=== PATIENT | male | born 1965 | race African-American/Black ===

== ENCOUNTER 2016-11-30 14:58 | Inpatient (IN) | payer OTHER ==
[2016-11-30 15:30] VITALS: BMI 22.8
[2016-11-30] MEDS ORDERED: MENTHOL/PHENOL 1 EACH UD MM PRN (17:33)
[2016-11-30] MEDS ORDERED: MAGNESIUM HYDROX 2400MG/30ML ORAL SUSPENSION 30 ML CUP PO PRN (17:33)
[2016-11-30] MEDS ORDERED: diphenhydrAMINE HCL 50 MG CAPSULE PO PRN (17:33)
[2016-11-30] MEDS ORDERED: guaiFENesin/D-METHORPHAN HB 10 ML UNIT-DOSE CUPS PO PRN (17:33)
[2016-11-30] MEDS ORDERED: NICOTINE 14 MG/24 HOURS TOPICAL PATCH TD PRN (17:33)
[2016-11-30] MEDS ORDERED: MAGNESIUM CITRATE 300 ML BOTTLE PO PRN (17:33)
[2016-11-30] MEDS ORDERED: ACETAMINOPHEN 325 MG TABLET (FP) PO PRN (17:33)
[2016-11-30] MEDS ORDERED: MAG HYDROX/AL HYDROX/SIMETH 30 ML UNIT-DOSE CUP PO PRN (17:33)
[2016-11-30] MEDS ORDERED: P-EPHED 60MG/TRIPROLIDI 2.5MG TABLET PO PRN (17:33)
[2016-11-30] MEDS ORDERED: hydrOXYzine PAMOATE 50 MG CAPSULE (FP) PO PRN (17:33)
[2016-11-30] MEDS ORDERED: IBUPROFEN 400 MG TABLET (FP) PO PRN (17:33)
[2016-11-30] MEDS ORDERED: NICOTINE POLACRILEX 2 MG GUM BC PRN (17:33)
[2016-11-30] MEDS ORDERED: LOPERAMIDE HCL 2 MG CAPSULE PO PRN (17:33)
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
[2016-11-30] MEDS ORDERED: COLLOIDAL OATMEAL 1 BAR EACH TP PRN (17:35)
[2016-11-30] MEDS ORDERED: TUBERCULIN PPD 5 TU/0.1ML VIAL ID ONE ×2 (18:45→18:47)
[2016-11-30] MEDS: THIAMINE HCL 100 MG TABLET (FP) PO SCH (22:26)
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
--- NOTE | 2016-12-01 09:06 | EKG ---
Test Reason : Blood Pressure : / mmHG Vent. Rate : 069 BPM Atrial Rate : 069 BPM P-R Int : 162 ms QRS Dur : 084 ms QT Int : 422 ms P-R-T Axes : 060 047 013 degrees QTc Int : 452 ms NORMAL SINUS RHYTHM SEPTAL INFARCT , AGE UNDETERMINED ABNORMAL ECG NO PREVIOUS ECGS AVAILABLE Confirmed by AUSTIN ANH MD ([id number]) on 12/01/2016 9:05:36 AM Referred By: Confirmed By:AUSTIN AHN MD
[2016-12-01 09:46] LABS: MCH 32.5 pg (25.7-33.7); MEAN CELL VOLUME 98.4 fl (80-96); MEAN PLT VOLUME 7.8 fl (7.5-11.1); PLATELET COUNT 321 K/MM3 (134-434); RDW 13.7 % (11.9-15.9); WHITE BLOOD COUNT 5.9 K/mm3 (4.0-10.0)
[2016-12-01] MEDS: PRENATAL VITAMINS W/ FOLIC ACID TABLET (FP) PO SCH (09:46)
[2016-12-01 10:39] LABS: HIV 1 & 2 AB NEGATIVE; HIV 1 AGp24 NEGATIVE
[2016-12-01 10:51] LABS: ANION GAP 7 (8-16); CO2 34 mmol/L (21-32); CREATININE 1.1 mg/dL (0.7-1.3); GLUCOSE,RANDOM 97 mg/dL (74-106); SGOT/AST 19 U/L (15-37); SGPT/ALT 33 U/L (12-78)
[2016-12-01 10:52] LABS: ALK PHOS 76 U/L (45-117); TOT PROT 7.5 g/dl (6.4-8.2)
[2016-12-01 17:41] LABS: URINE APPEARANCE CLEAR; URINE BILIRUBIN NEGATIVE (NEGATIVE); URINE BLOOD NEGATIVE (NEGATIVE); URINE COLOR COLORLESS; URINE GLUCOSE (UA) NEGATIVE (NEGATIVE); URINE KETONE NEGATIVE (NEGATIVE); URINE LEUK ESTERASE NEGATIVE (NEGATIVE); URINE NITRITE NEGATIVE (NEGATIVE); URINE PROTEIN NEGATIVE (NEGATIVE); URINE UROBILINOGEN NEGATIVE mg/dL (0.2-1.0)
[2016-12-01] MEDS: THIAMINE HCL 100 MG TABLET (FP) PO SCH (21:54)
[2016-12-02 07:05] VITALS: BP 131/77; PULSE 83; TEMP 98.3
[2016-12-02] MEDS: PRENATAL VITAMINS W/ FOLIC ACID TABLET (FP) PO SCH (10:18)
--- NOTE | 2016-12-02 15:30 | PN ---
S Progress Note Note: Psychiatry Attending's note : Informed by nurse Liceralde of patient's request for immediate discharge. Mr Gonzalez was instructed to wait for psychiatrist.He refused and left the unit. See staff's notes for details.
== END 2016-12-02 12:12 | disposition left against medical advice (07) | DRG 770 ==
LOC: YASAS 14:58 → Y3W 17:44
PROVIDERS: ADMIT Psychiatry & Neurology Psychiatry; ATTEND Psychiatry & Neurology Psychiatry
PROC: HZ42ZZZ Group Counseling for Substance Abuse Treatment, Cognitive-Behavioral (ICD-10-PCS; principal; 2016-11-30)
DX: F11.20 Opioid dependence, uncomplicated (principal); F17.213 Nicotine dependence, cigarettes, with withdrawal; F19.282 Other psychoactive substance dependence with psychoactive substance-induced sleep disorder; Z88.0 Allergy status to penicillin; Z87.898 Personal history of other specified conditions; Z59.0 Homelessness
CPT/HCPCS: 36415; 80053; 81003; 85027; 86593; 86803; 87389; 93005; 93010

== ENCOUNTER 2017-05-04 17:42 | Inpatient (IN) | payer OTHER ==
[2017-05-04 18:33] VITALS: BMI 25.1
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
[2017-05-04] MEDS ORDERED: ACETAMINOPHEN 325 MG TABLET (FP) PO PRN (21:37)
[2017-05-04] MEDS ORDERED: guaiFENesin/D-METHORPHAN HB 10 ML UNIT-DOSE CUPS PO PRN (21:37)
[2017-05-04] MEDS ORDERED: chlordiazePOXIDE HCL 25 MG CAPSULE PO PRN (21:37)
[2017-05-04] MEDS ORDERED: METHADONE HCL 10 MG TABLET (FOR DETOX USE ONLY) PO ONE ×2 (21:37→23:00)
[2017-05-04] MEDS ORDERED: MENTHOL/PHENOL 1 EACH UD MM PRN (21:37)
[2017-05-04] MEDS ORDERED: MAG HYDROX/AL HYDROX/SIMETH 30 ML UNIT-DOSE CUP PO PRN (21:37)
[2017-05-04] MEDS ORDERED: MAGNESIUM HYDROX 2400MG/30ML ORAL SUSPENSION 30 ML CUP PO PRN (21:37)
[2017-05-04] MEDS ORDERED: MAGNESIUM CITRATE 300 ML BOTTLE PO PRN (21:37)
[2017-05-04] MEDS ORDERED: LOPERAMIDE HCL 2 MG CAPSULE PO PRN (21:37)
[2017-05-04] MEDS ORDERED: IBUPROFEN 400 MG TABLET (FP) PO PRN (21:37)
[2017-05-04] MEDS ORDERED: P-EPHED 60MG/TRIPROLIDI 2.5MG TABLET PO PRN (21:37)
[2017-05-04] MEDS ORDERED: NICOTINE POLACRILEX 2 MG GUM BC PRN (21:37)
[2017-05-04] MEDS ORDERED: METHADONE HCL 10 MG TABLET (FOR DETOX USE ONLY) ONE (23:43)
[2017-05-05] MEDS: THIAMINE HCL 100 MG TABLET (FP) PO SCH ×2 (00:08→22:05)
[2017-05-05] MEDS: chlordiazePOXIDE HCL 25 MG CAPSULE PO SCH ×5 (00:08→22:05)
[2017-05-05 00:52] LABS: URINE APPEARANCE CLEAR; URINE BILIRUBIN NEGATIVE (NEGATIVE); URINE BLOOD NEGATIVE (NEGATIVE); URINE COLOR YELLOW; URINE GLUCOSE (UA) NEGATIVE (NEGATIVE); URINE KETONE NEGATIVE (NEGATIVE); URINE LEUK ESTERASE NEGATIVE (NEGATIVE); URINE NITRITE NEGATIVE (NEGATIVE); URINE PROTEIN NEGATIVE (NEGATIVE)
[2017-05-05] MEDS ORDERED: METHADONE HCL 10 MG TABLET (FOR DETOX USE ONLY) PO SCH (10:00)
[2017-05-05] MEDS: PRENATAL VITAMINS W/ FOLIC ACID TABLET (FP) PO SCH (10:13)
[2017-05-05] MEDS: NICOTINE 14 MG/24 HOURS TOPICAL PATCH TD SCH (10:14)
[2017-05-05 10:27] LABS: HEMATOCRIT 41.6 % (35.4-49); HEMOGLOBIN 13.4 GM/dL (11.7-16.9); MCH 31.3 pg (25.7-33.7); MCHC 32.2 g/dl (32.0-35.9); MEAN CELL VOLUME 97.3 fl (80-96); MEAN PLT VOLUME 8.1 fl (7.5-11.1); PLATELET COUNT 269 K/MM3 (134-434); RBC 4.27 M/mm3 (4.00-5.60); RDW 13.2 % (11.9-15.9); WHITE BLOOD COUNT 4.9 K/mm3 (4.0-10.0)
[2017-05-05 10:38] LABS: CHLORIDE 104 mmol/L (98-107); SODIUM 143 mmol/L (136-145)
[2017-05-05 10:53] LABS: ALBUMIN 4.1 g/dl (3.4-5.0); ALK PHOS 81 U/L (45-117); ANION GAP 7 (8-16); BLOOD UREA NITROGEN 16 mg/dL (7-18); CALCIUM 9.2 mg/dL (8.5-10.1); CO2 32 mmol/L (21-32); CREATININE 1.2 mg/dL (0.7-1.3); GLUCOSE,RANDOM 93 mg/dL (74-106); SGOT/AST 28 U/L (15-37); SGPT/ALT 45 U/L (12-78); TOT PROT 7.7 g/dl (6.4-8.2)
--- NOTE | 2017-05-05 11:53 | PN ---
[facility] CIWA - CIWA Score Nausea/Vomitin-Int. Nausea w/Dry Heave Muscle Tremors: 4-Moderate,w/Arms Extend Anxiety: 3 Agitation: 3 Paroxysmal Sweats: 3 Orientation: 0-Oriented Tacttile Disturbances: 1-Very Mild Itch/Numbness Auditory Disturbances: 0-None Visual Disturbances: 0-None Headache: 0-None Present CIWA-Ar Total Score: 18 [facility] COWS - Scale Resting Pulse: 0= [place] 80 or Below Sweatin= Chills/Flushing Restless Observation: 3= Extraneous Movement Pupil Size: 0= Normal to Room Light Bone or Joint Aches: 2= Severe Diffuse Aches Runny Nose/ Eye Tearin= Runny Nose/Eyes GI Upset > 30mins: 2= Nausea/Diarrhea Tremor Observation of Outstretched Hands: 2= Slight Tremor Visible Yawning Observation: 1= 1-2x During Session Anxiety or Irritability: 2=Irritable/Anxious Goose Flesh Skin: 0=Smooth Skin COWS Score: 15 [facility] Progress Note (SOAP) Subjective: Nausea, sweating, interrupted sleep Objective: 05/05/17 11:49 Last Vital Signs Temp Pulse Resp BP Pulse Ox 97 F L 66 18 103/67 05/05/17 09:00 05/05/17 09:00 05/05/17 09:00 05/05/17 09:00 Laboratory Tests 05/04/17 05/05/17 05/05/17 22:59 08:00 08:00 WBC 4.9 RBC 4.27 Hgb 13.4 Hct 41.6 MCV 97.3 H MCH 31.3 MCHC 32.2 RDW 13.2 Plt Count 269 MPV 8.1 Sodium 143 Potassium 4.0 Chloride 104 Carbon Dioxide 32 Anion Gap 7 L BUN 16 Creatinine 1.2 Creat Clearance w eGFR > 60 Random Glucose 93 Calcium 9.2 Total Bilirubin 1.0 AST 28 D ALT 45 D Alkaline Phosphatase 81 Total Protein 7.7 Albumin 4.1 Urine Color Yellow Urine Appearance Clear Urine pH 5.0 Ur Specific [place] 1.027 Urine Protein Negative Urine Glucose (UA) Negative Urine Ketones Negative Urine Blood Negative Urine Nitrite Negative Urine Bilirubin Negative Urine Urobilinogen 2.0 Ur Leukocyte Esterase Negative Labs noted Assessment: 05/05/17 11:51 Withdrawal symptoms Plan: Continue detox Encouraged PO hydration (water)
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
--- NOTE | 2017-05-05 15:58 | EKG ---
Test Reason : Blood Pressure : / mmHG Vent. Rate : 070 BPM Atrial Rate : 070 BPM P-R Int : 166 ms QRS Dur : 084 ms QT Int : 420 ms P-R-T Axes : 062 013 009 degrees QTc Int : 453 ms NORMAL SINUS RHYTHM NORMAL ECG WHEN COMPARED WITH ECG OF 30-NOV-2016 21:30, CRITERIA FOR SEPTAL INFARCT ARE NO LONGER PRESENT NONSPECIFIC T WAVE ABNORMALITY NO LONGER EVIDENT IN ANTEROLATERAL LEADS Confirmed by JENNIFER VALDES, VIKTORIYA ([id number]) on 05/05/2017 3:58:25 PM Referred By: Confirmed By:VIKTORIYA RODRIGUEZ MD
[2017-05-06] MEDS: chlordiazePOXIDE HCL 25 MG CAPSULE PO SCH ×3 (05:33→20:35)
[2017-05-06] MEDS: METHADONE HCL 5 MG TABLET (FOR DETOX USE ONLY) PO SCH (10:39)
[2017-05-06] MEDS: PRENATAL VITAMINS W/ FOLIC ACID TABLET (FP) PO SCH (10:39)
[2017-05-06] MEDS: NICOTINE 14 MG/24 HOURS TOPICAL PATCH TD SCH (10:41)
--- NOTE | 2017-05-06 15:49 | PN ---
[facility] CIWA - CIWA Score Nausea/Vomitin Muscle Tremors: 3 Anxiety: 3 Agitation: 3 Paroxysmal Sweats: 2 Orientation: 0-Oriented Tacttile Disturbances: 0-None Auditory Disturbances: 0-None Visual Disturbances: 0-None Headache: 0-None Present CIWA-Ar Total Score: 14 S COWS - Scale Resting Pulse: 0= [place] 80 or Below Sweatin=Flushed/Facial Moisture Restless Observation: 1= Difficult to Sit Still Pupil Size: 0= Normal to Room Light Bone or Joint Aches: 1= Mild Discomfort Runny Nose/ Eye Tearin= Nasal Congestion GI Upset > 30mins: 2= Nausea/Diarrhea Tremor Observation of Outstretched Hands: 2= Slight Tremor Visible Yawning Observation: 1= 1-2x During Session Anxiety or Irritability: 2=Irritable/Anxious Goose Flesh Skin: 0=Smooth Skin COWS Score: 12 [facility] Progress Note (SOAP) Subjective: swaets shakes sleep disturbance Objective: 05/06/17 15:48 Not in acute distress Vital Signs Temperature 97.3 F L 05/06/17 13:32 Pulse Rate 71 05/06/17 13:32 Respiratory Rate 18 05/06/17 13:32 Blood Pressure 100/64 05/06/17 13:32 O2 Sat by Pulse Oximetry (%) Assessment: 05/06/17 15:49 withdrawal sx Plan: continue detox
[2017-05-06] MEDS: THIAMINE HCL 100 MG TABLET (FP) PO SCH (21:59)
[2017-05-06] MEDS: chlordiazePOXIDE 5 MG CAPSULE PO SCH (22:00)
[2017-05-07] MEDS: chlordiazePOXIDE 5 MG CAPSULE PO SCH ×2 (06:35→11:00)
[2017-05-07] MEDS: METHADONE HCL 5 MG TABLET (FOR DETOX USE ONLY) PO SCH (10:59)
[2017-05-07] MEDS: NICOTINE 14 MG/24 HOURS TOPICAL PATCH TD SCH (10:59)
[2017-05-07] MEDS: PRENATAL VITAMINS W/ FOLIC ACID TABLET (FP) PO SCH (10:59)
--- NOTE | 2017-05-07 11:00 | PN ---
S Progress Note (SOAP) Subjective: PT STATES HE FEELS BETTER. REFUSED METHADONE 10 MG TODAY PER PT'S NURSE. PT'S COUNSELOR, RASHAAD SPOKE WITH PATIENT AND TO ADDRESS AFTERCARE. Objective: 05/07/17 11:00 Vital Signs Temperature 96.9 F L 05/07/17 09:30 Pulse Rate 61 05/07/17 09:30 Respiratory Rate 18 05/07/17 09:30 Blood Pressure 109/71 05/07/17 09:30 O2 Sat by Pulse Oximetry (%) Laboratory Last Values WBC 4.9 K/mm3 (4.0-10.0) 05/05/17 08:00 RBC 4.27 M/mm3 (4.00-5.60) 05/05/17 08:00 Hgb 13.4 GM/dL (11.7-16.9) 05/05/17 08:00 Hct 41.6 % (35.4-49) 05/05/17 08:00 MCV 97.3 fl (80-96) H 05/05/17 08:00 MCH 31.3 pg (25.7-33.7) 05/05/17 08:00 MCHC 32.2 g/dl (32.0-35.9) 05/05/17 08:00 RDW 13.2 % (11.9-15.9) 05/05/17 08:00 Plt Count 269 K/MM3 (134-434) 05/05/17 08:00 MPV 8.1 fl (7.5-11.1) 05/05/17 08:00 Sodium 143 mmol/L (136-145) 05/05/17 08:00 Potassium 4.0 mmol/L (3.5-5.1) 05/05/17 08:00 Chloride 104 mmol/L (98-107) 05/05/17 08:00 Carbon Dioxide 32 mmol/L (21-32) 05/05/17 08:00 Anion Gap 7 (8-16) L 05/05/17 08:00 BUN 16 mg/dL (7-18) 05/05/17 08:00 Creatinine 1.2 mg/dL (0.7-1.3) 05/05/17 08:00 Creat Clearance w eGFR > 60 (>60) 05/05/17 08:00 Random Glucose 93 mg/dL (74-106) 05/05/17 08:00 Calcium 9.2 mg/dL (8.5-10.1) 05/05/17 08:00 Total Bilirubin 1.0 mg/dL (0.2-1.0) 05/05/17 08:00 AST 28 U/L (15-37) D 05/05/17 08:00 ALT 45 U/L (12-78) D 05/05/17 08:00 Alkaline Phosphatase 81 U/L (45-117) 05/05/17 08:00 Total Protein 7.7 g/dl (6.4-8.2) 05/05/17 08:00 Albumin 4.1 g/dl (3.4-5.0) 05/05/17 08:00 Urine Color Yellow 05/04/17 22:59 Urine Appearance Clear 05/04/17 22:59 Urine pH 5.0 (5.0-8.0) 05/04/17 22:59 Ur Specific [place] 1.027 (1.001-1.035) 05/04/17 22:59 Urine Protein Negative (NEGATIVE) 05/04/17 22:59 Urine Glucose (UA) Negative (NEGATIVE) 05/04/17 22:59 Urine Ketones Negative (NEGATIVE) 05/04/17 22:59 Urine Blood Negative (NEGATIVE) 05/04/17 22:59 Urine Nitrite Negative (NEGATIVE) 05/04/17 22:59 Urine Bilirubin Negative (NEGATIVE) 05/04/17 22:59 Urine Urobilinogen 2.0 mg/dL (0.2-1.0) 05/04/17 22:59 Ur Leukocyte Esterase Negative (NEGATIVE) 05/04/17 22:59 RPR Titer Nonreactive (NONREACTIVE) 05/05/17 08:00 Hepatitis C Antibody 0.2 s/co ratio (0.0-0.9) 05/05/17 08:00 Assessment: 05/07/17 11:01 WITHDRAWAL SX Plan: CONTINUE DETOX
[2017-05-07 14:14] VITALS: BP 102/65; PULSE 77; TEMP 97.3
--- NOTE | 2017-05-07 14:37 | DS ---
[facility] Detox Discharge Summary Admission Date: 05/04/17 Discharge Date: 05/07/17 - History Present History: Alcohol Dependence, Cocaine Dependence, Opioid Dependence Additional Comments: PT SIGNED OUT AMA FOR PERSONAL REASONS. STATES HE IS READY TO GO. Pertinent Past History: SEE DX BELOW - Physical Exam Results Vital Signs: Vital Signs Temperature 97.3 F L 05/07/17 14:13 Pulse Rate 77 05/07/17 14:13 Respiratory Rate 18 05/07/17 14:13 Blood Pressure 102/65 05/07/17 14:13 O2 Sat by Pulse Oximetry (%) Pertinent Admission Physical Exam Findings: WITHDRAWAL SX Laboratory Last Values WBC 4.9 K/mm3 (4.0-10.0) 05/05/17 08:00 RBC 4.27 M/mm3 (4.00-5.60) 05/05/17 08:00 Hgb 13.4 GM/dL (11.7-16.9) 05/05/17 08:00 Hct 41.6 % (35.4-49) 05/05/17 08:00 MCV 97.3 fl (80-96) H 05/05/17 08:00 MCH 31.3 pg (25.7-33.7) 05/05/17 08:00 MCHC 32.2 g/dl (32.0-35.9) 05/05/17 08:00 RDW 13.2 % (11.9-15.9) 05/05/17 08:00 Plt Count 269 K/MM3 (134-434) 05/05/17 08:00 MPV 8.1 fl (7.5-11.1) 05/05/17 08:00 Sodium 143 mmol/L (136-145) 05/05/17 08:00 Potassium 4.0 mmol/L (3.5-5.1) 05/05/17 08:00 Chloride 104 mmol/L (98-107) 05/05/17 08:00 Carbon Dioxide 32 mmol/L (21-32) 05/05/17 08:00 Anion Gap 7 (8-16) L 05/05/17 08:00 BUN 16 mg/dL (7-18) 05/05/17 08:00 Creatinine 1.2 mg/dL (0.7-1.3) 05/05/17 08:00 Creat Clearance w eGFR > 60 (>60) 05/05/17 08:00 Random Glucose 93 mg/dL (74-106) 05/05/17 08:00 Calcium 9.2 mg/dL (8.5-10.1) 05/05/17 08:00 Total Bilirubin 1.0 mg/dL (0.2-1.0) 05/05/17 08:00 AST 28 U/L (15-37) D 05/05/17 08:00 ALT 45 U/L (12-78) D 05/05/17 08:00 Alkaline Phosphatase 81 U/L (45-117) 05/05/17 08:00 Total Protein 7.7 g/dl (6.4-8.2) 05/05/17 08:00 Albumin 4.1 g/dl (3.4-5.0) 05/05/17 08:00 Urine Color Yellow 05/04/17 22:59 Urine Appearance Clear 05/04/17 22:59 Urine pH 5.0 (5.0-8.0) 05/04/17 22:59 Ur Specific [place] 1.027 (1.001-1.035) 05/04/17 22:59 Urine Protein Negative (NEGATIVE) 05/04/17 22:59 Urine Glucose (UA) Negative (NEGATIVE) 05/04/17 22:59 Urine Ketones Negative (NEGATIVE) 05/04/17 22:59 Urine Blood Negative (NEGATIVE) 05/04/17 22:59 Urine Nitrite Negative (NEGATIVE) 05/04/17 22:59 Urine Bilirubin Negative (NEGATIVE) 05/04/17 22:59 Urine Urobilinogen 2.0 mg/dL (0.2-1.0) 05/04/17 22:59 Ur Leukocyte Esterase Negative (NEGATIVE) 05/04/17 22:59 RPR Titer Nonreactive (NONREACTIVE) 05/05/17 08:00 Hepatitis C Antibody 0.2 s/co ratio (0.0-0.9) 05/05/17 08:00 - Treatment Hospital Course: Discharged Condition Good - Medication Discharge Medications: Ambulatory Orders NK [No Known Home Medication] 11/25/16 - Diagnosis (1) Alcohol dependence with uncomplicated withdrawal Status: Acute (2) Cocaine dependence, uncomplicated Status: Acute (3) Nicotine dependence Status: Acute Qualifiers: Nicotine product type: cigarettes Substance use status: in withdrawal Qualified Code(s): F17.213 - Nicotine dependence, cigarettes, with withdrawal (4) Opioid dependence with withdrawal Status: Acute (5) Sedative, hypnotic or anxiolytic dependence with withdrawal, uncomplicated Status: Acute (6) Weight loss Status: Acute - AMA Did Patient Leave Against Medical Advice: Yes (AMA)
[2017-05-07] MEDS ORDERED: chlordiazePOXIDE HCL 10 MG CAPSULE PO SCH (23:00)
[2017-05-08] MEDS ORDERED: METHADONE HCL 10 MG TABLET (FOR DETOX USE ONLY) PO SCH (10:00)
[2017-05-09] MEDS ORDERED: METHADONE HCL 5 MG TABLET (FOR DETOX USE ONLY) PO SCH (06:00)
== END 2017-05-07 14:28 | disposition left against medical advice (07) | DRG 770 ==
LOC: YASAS 17:42 → Y3N 20:31
PROVIDERS: ADMIT Internal Medicine; ATTEND Internal Medicine
PROC: HZ2ZZZZ Detoxification Services for Substance Abuse Treatment (ICD-10-PCS; principal; 2017-05-04)
DX: F11.23 Opioid dependence with withdrawal (principal); F10.230 Alcohol dependence with withdrawal, uncomplicated; F13.230 Sedative, hypnotic or anxiolytic dependence with withdrawal, uncomplicated; F14.20 Cocaine dependence, uncomplicated; F17.213 Nicotine dependence, cigarettes, with withdrawal; Z88.0 Allergy status to penicillin; Z87.898 Personal history of other specified conditions; Z59.0 Homelessness
CPT/HCPCS: 36415; 80053; 81003; 85027; 86593; 86803; 93005; 93010